=== PATIENT | female | born 1995 | race Caucasian/White ===

== ENCOUNTER → 2016-08-22 10:04 | Outpatient (CLI) | payer MEDICAID | END | disposition home or self-care (01) | LOC: D.MRI 10:04 | DX: F07.81 Postconcussional syndrome (principal); G43.711 Chronic migraine without aura, intractable, with status migrainosus ==

== ENCOUNTER → 2017-02-09 12:42 | Outpatient (CLI) | payer MEDICAID | END | disposition home or self-care (01) | LOC: D.RAD 02-08 11:00 → D.MRI 02-08 11:30 → D.RAD 12:42 | DX: S43.431A Superior glenoid labrum lesion of right shoulder, initial encounter (principal) ==